=== PATIENT | male | born 1980 | race Two or more races ===

== ENCOUNTER 2024-12-14 06:31 | Day surgery (SDC) | payer BC ==
[2024-12-01 14:25] VITALS: BMI 25.1
[2024-12-14 08:31] VITALS: RESP 18; TEMP 98.2
[2024-12-14 09:47] VITALS: BP 117/70; PULSE 69
== END 2024-12-14 09:47 | disposition home or self-care (01) ==
LOC: JASU-ENDO 06:31
PROVIDERS: ATTEND Internal Medicine Gastroenterology
PROC: 0DJD8ZZ Inspection of Lower Intestinal Tract, Via Natural or Artificial Opening Endoscopic (ICD-10-PCS; principal; 2024-12-14 08:00)
DX: Z12.11 Encounter for screening for malignant neoplasm of colon (principal); K63.89 Other specified diseases of intestine